=== PATIENT | female | born 1960 | race African-American/Black ===

== ENCOUNTER 2020-12-10 09:56 | Day surgery (SDC) | payer OTHER ==
[2020-12-04 10:27] VITALS: BMI 32.9
[2020-12-10] MEDS ORDERED: SODIUM CHLORIDE 0.9% P/F 10 ML VIAL IJ ONE (10:01)
[2020-12-10] MEDS ORDERED: BUPIVACAINE HCL 100 ML ONE (10:01)
[2020-12-10] MEDS ORDERED: MIDAZOLAM HCL 2 MG/2 ML SINGLE DOSE VIAL ONE (11:17)
[2020-12-10] MEDS ORDERED: PROPOFOL 20 ML ONE (11:25)
[2020-12-10] MEDS ORDERED: MORPHINE SULFATE 10 MG/1 ML *VIAL ONE (11:31)
[2020-12-10] MEDS ORDERED: ePHEDrine SULFATE 50 MG/1 ML AMPULE ONE (11:48)
[2020-12-10] MEDS ORDERED: ceFAZolin SODIUM 1 GM VIAL ONE (11:48)
[2020-12-10] MEDS ORDERED: ONDANSETRON 4 MG/2 ML VIAL ONE ×2 (11:48→12:04)
[2020-12-10] MEDS ORDERED: DEXAMETHASONE SOD PHOSPHATE 4 MG/1 ML VIAL ONE (11:48)
[2020-12-10] MEDS ORDERED: KETOROLAC TROMETHAMINE 30 MG/1 ML VIAL ONE (12:04)
[2020-12-10] MEDS ORDERED: ONDANSETRON 4 MG/2 ML VIAL IVPUSH PRN (12:28)
[2020-12-10] MEDS ORDERED: oxyCODONE HCL 5 MG TABLET PO PRN (12:28)
[2020-12-10] MEDS ORDERED: LACTATED RINGERS SOLUTION 1,000 ML IV SCH (12:30)
[2020-12-10] MEDS ORDERED: oxyCODONE HCL 5 MG TABLET ONE (14:22)
[2020-12-10 15:23] VITALS: BP 121/61; PULSE 54; TEMP 98
== END 2020-12-10 15:25 | disposition home or self-care (01) ==
LOC: FASU 09:56
PROVIDERS: ATTEND Orthopaedic Surgery
PROC: 0SBC4ZZ Excision of Right Knee Joint, Percutaneous Endoscopic Approach (ICD-10-PCS; 2020-12-10)
PROC: 0SQC4ZZ Repair Right Knee Joint, Percutaneous Endoscopic Approach (ICD-10-PCS; 2020-12-10)
PROC: 0SQC4ZZ Repair Right Knee Joint, Percutaneous Endoscopic Approach (ICD-10-PCS; 2020-12-10)
PROC: 0SBC4ZZ Excision of Right Knee Joint, Percutaneous Endoscopic Approach (ICD-10-PCS; 2020-12-10)
PROC: 0SBC4ZZ Excision of Right Knee Joint, Percutaneous Endoscopic Approach (ICD-10-PCS; principal; 2020-12-10 11:45)
DX: S83.241A Other tear of medial meniscus, current injury, right knee, initial encounter (principal); S83.281A Other tear of lateral meniscus, current injury, right knee, initial encounter; M94.261 Chondromalacia, right knee; M93.261 Osteochondritis dissecans, right knee; M25.861 Other specified joint disorders, right knee; M67.261 Synovial hypertrophy, not elsewhere classified, right lower leg; X58.XXXA Exposure to other specified factors, initial encounter; Y93.9 Activity, unspecified; Y92.9 Unspecified place or not applicable
CPT/HCPCS: 29880; 29886; G0289; 94760